=== PATIENT | male | born 1955 | race Caucasian/White ===

== ENCOUNTER 2023-01-23 10:15 | Outpatient (AMB) | payer OTHER, SELFPAY ==
--- NOTE | 2023-01-23 10:34 | A.OFFVIS_ITS ---
Intake Vital Signs 01/23/23 10:37 Height 6 ft 3 in Weight 200 lb BMI 25.0 BP 139/61 Blood Pressure Location Lt brachial Position Sitting Pulse 65 Intake Visit Reasons: Colonoscopy Screening Intake Note: Patient new consult for 6th pre colonoscopy screening. Patient denies any GI issues. Child Protective Services Specialist Required: No Accompanied by: Self / Same As Patient Allergies No Known Allergies [No Known Allergies*] Allergy (Verified 01/23/23 10:32) Medication List - Last Reconciled 01/23/23 by Gabby Garza PA-C atorvastatin (Lipitor) 20 mg PO DAILY cetirizine (Zyrtec) 10 mg PO DAILY PRN ramipril 10 mg PO DAILY tamsulosin (Flomax) 0.4 mg PO DAILY HPI HPI Comments History of Present Illness Details A 67 y/o male hx sessile serrated/ adenoma polyps Hemorrhoids- bleed - rarely- last only couple days- He is very active, goes to the gym for 5 days a week- he has good appetite normal bowel pattern No cardiac or respiratory No nausea, vomiting, hematemesis, hematochezia fever chills PFSH Surgical History Hx of hernia repair Hx of tonsillectomy Hx of eye surgery Hx of knee surgery Social History (Updated 01/23/23 @ 11:00 by Gabby Garza PA-C) Household Members: Family Alcohol intake: current Alcohol intake frequency: holidays/special occasions only Patient Tobacco Use Status: Never used Tobacco Use of substances other than those prescribed or required for medical reasons: No Current occupational status: retired Current occupation: Emergency Medicine Review of Systems Const Details: All systems reviewed and are negative All systems reviewed & are unremarkable except as noted in HPI and below Card Denies chest pain and Denies dyspnea Resp Denies dyspnea GI Denies abdominal pain, Denies heartburn, Denies diarrhea and Denies nausea Physical Exam Vital Signs: Last Vital Signs Pulse 65 01/23/23 10:37 BP 139/61 01/23/23 10:37 BMI result Body Mass Index 25.0 Const General: cooperative, healthy appearing, comfortable and no acute distress Orientation/consciousness: patient oriented x3 Limitations: no limitations Eyes Sclerae: sclerae normal Resp Effort & Inspection: normal respiratory effort and able to speak in complete sentences Auscultation: clear to auscultation bilaterally, no rales, no rhonchi and no wheezes Cardio Rate: regular rate Rhythm: regular rhythm Heart sounds: S1 normal heart sound present and S2 normal heart sound present Skin General skin exam: no rashes or lesions noted Neuro General: patient oriented x3 Extrem General: Yes full ROM Psych Appearance: grossly normal and well kempt Mental Status: mental status grossly normal Speech and movement: Normal speech and movement present and Clear speech present Affect: normal affect Attitude: cooperative Thought process: Normal thought process present Thought content: Normal thought content present Insight: Good insight present (Psych) Judgement: Good judgement present (Psych) Results Reviewed Results Reviewed: mpression and Post Procedure Diagnosis: Colonoscopy Findings: 3 Polyps removed x 1 Diverticulum in ascending colon Internal Hemorrhoids on retroflexed exam. Plan: Await pathology results epsom salts/sitz bath and high fiber diet, avoid straining at stool, squatty potty-if sx persist then colo rectal referral Repeat Colonoscopy interval 3 yrs Adenoma Sessile serratated Assessment & Plan Assessment & Plan (1) Sessile serrated polyp of colon: Code(s): D12.6 - Benign neoplasm of colon, unspecified Plan: Polyp surveillance colonoscopy (2) Tubular adenoma: Code(s): D36.9 - Benign neoplasm, unspecified site (3) Hemorrhoids: Code(s): K64.9 - Unspecified hemorrhoids Plan: Maintain high-fiber diet Avoid straining Plan Polyp surveillance colonoscopy with Dr. Davey Orders: Orders Colonoscopy - GI Use Only Today D12.6 - Benign neoplasm of colon, unspecified, D36.9 - Benign neoplasm, unspecified site Medications: New bisacodyl (Dulcolax (bisacodyl)) Day before procedure, prep day Take 4 tablets by mouth upon awakening followed by large glass of water 20 mg (4 x 5 mg) PO ONCE 4 tabs 0RF colonoscopy prep 1 day Z12.11 - Encounter for screening for malignant neoplasm of colon polyethylene glycol 3350 (Miralax) Take as directed by mouth the day before your procedure. 238 grams PO ONCE PRN 238 grams 0RF laxative effect 1 day Patient Instructions: Very pleasant 67-year-old Gent personal history of colon polyps Polyp surveillance colonoscopy-Dr. Davey MiraLaregina Gatorade split prep High-fiber diet Avoid straining with Encouraged to call questions or concerns Coding Level of Care Code New Pt Level 3 (17018) Diagnoses Sessile serrated polyp of colon D12.6 Tubular adenoma D36.9 Hemorrhoids K64.9 Time Spent (min) 30
[2023-01-23 10:37] VITALS: BP 139/61; PULSE 65; BMI 25.0
== END 2023-01-23 11:44 | disposition home or self-care (01) ==
PROVIDERS: PCP Nurse Practitioner Family; Visit Provider Physician Assistant
DX: D12.6 Benign neoplasm of colon, unspecified (principal); D36.9 Benign neoplasm, unspecified site; K64.9 Unspecified hemorrhoids
CPT/HCPCS: 99203

== ENCOUNTER → 2023-01-23 10:15 | Outpatient (BNVA) | payer OTHER, SELFPAY | PROVIDERS: PCP Nurse Practitioner Family; Visit Provider Physician Assistant ==

== ENCOUNTER 2023-05-30 10:45 | Day surgery (SDC) | payer OTHER, SELFPAY ==
[2023-05-28 14:18] VITALS: BMI 25.0
--- NOTE | 2023-05-29 10:54 | P.CONAN_ITS ---
Documented by User: Dora Yoder NP 05/29/23 10:54 HPI - Anesthesia Eval Consult details Narrative: 67yo M for Colonoscopy PMFSH Active Problems Active Problems: All Active Problems (Updated 05/28/23 @ 14:16 by Cathleen Villa RN) Hemorrhoids (Acute) Tubular adenoma (Acute) Sessile serrated polyp of colon (Acute) Past Medical History Medical History (Updated 05/30/23 @ 11:41 by Cassie Rodas, MYRA) Arthritis Elevated cholesterol HTN (hypertension) Surgical History Surgical History H/O colonoscopy Hx of hernia repair Hx of tonsillectomy Hx of eye surgery Hx of knee surgery Social History Social History (Updated 01/23/23 @ 11:00 by Gabby Garza PA-C) Household Members: Family Alcohol intake: current Alcohol intake frequency: holidays/special occasions only Patient Tobacco Use Status: Never used Tobacco Use of substances other than those prescribed or required for medical reasons: No Are you DNR?: No Advance Directives: No Advance Directives Information Provided: Yes Current occupational status: retired Current occupation: Emergency Medicine Meds Allergies Allergy/AdvReac Type Severity Reaction Status Date / Time No Known Allergies Allergy Verified 05/30/23 11:41 [No Known Allergies*] Home Medications Medication Instructions Recorded Confirmed Last Taken Type atorvastatin 20 mg tablet (Lipitor) 20 mg PO DAILY 01/23/23 05/28/23 Unknown History cetirizine 10 mg tablet (Zyrtec) 10 mg PO DAILY PRN Allergy Symptoms 01/23/23 05/28/23 Unknown History ramipril 10 mg capsule 10 mg PO DAILY 01/23/23 05/28/23 Unknown History tamsulosin 0.4 mg capsule (Flomax) 0.4 mg PO DAILY 01/23/23 05/28/23 Unknown History tgjeofoz-[id number] 300 mcg-K 60 1 tab PO DAILY 05/30/23 05/30/23 Unknown History mcg-lycop 600 mcg-lutein 300 mcg tablet (Centrum Silver Men) Exam Height,Weight and Vital Signs: Height 6 ft 3 in Weight 90.718 kg Assessment and Plan Assessment Anesthesia Assessment: Chart Reviewed Documented by User: John Haywood MD 05/30/23 12:06 [facility] Past Medical History Medical History (Updated 05/30/23 @ 11:41 by Cassie Rodas, MYRA) Arthritis Elevated cholesterol HTN (hypertension) Functional capacity: independent ambulation Family History Family history of problems with anesthesia: No Surgical History Surgical History H/O colonoscopy Hx of hernia repair Hx of tonsillectomy Hx of eye surgery Hx of knee surgery History of Problems with Anesthesia: No Social History Social History (Updated 01/23/23 @ 11:00 by Gabby Garza PA-C) Household Members: Family Alcohol intake: current Alcohol intake frequency: holidays/special occasions only Patient Tobacco Use Status: Never used Tobacco Use of substances other than those prescribed or required for medical reasons: No Are you DNR?: No Advance Directives: No Advance Directives Information Provided: Yes Current occupational status: retired Current occupation: Emergency Medicine Meds Allergies Allergy/AdvReac Type Severity Reaction Status Date / Time No Known Allergies Allergy Verified 05/30/23 11:41 [No Known Allergies*] Home Medications Medication Instructions Recorded Confirmed Last Taken Type atorvastatin 20 mg tablet (Lipitor) 20 mg PO DAILY 01/23/23 05/28/23 Unknown History cetirizine 10 mg tablet (Zyrtec) 10 mg PO DAILY PRN Allergy Symptoms 01/23/23 05/28/23 Unknown History ramipril 10 mg capsule 10 mg PO DAILY 01/23/23 05/28/23 Unknown History tamsulosin 0.4 mg capsule (Flomax) 0.4 mg PO DAILY 01/23/23 05/28/23 Unknown History twzsvppo-kh-[id number] 300 mcg-K 60 1 tab PO DAILY 05/30/23 05/30/23 Unknown History mcg-lycop 600 mcg-lutein 300 mcg tablet (Centrum Silver Men) Exam Airway Mallampati Class: I TM Dist: >3cm Neck ROM: Full Loose/Missing/Broken Teeth: No Heart: rrr Lungs: cta b/l Assessment and Plan Assessment Anesthesia Assessment: Anesthesia Plan Discussed Final Anesthetic Review Family History of Problems with Anesthesia: No History of Problems with Anesthesia: No NPO: Yes ASA Class: II Final Preanesthetic Review: Meds/Allgs Chart Reviewed, Consent Obtained/Reviewed and Anes Risks/Benef Reviewed Patient Risk: Intermediate Procedure Risk: Intermediate Anesthetic Plan Anesthetic Plan: MAC: Disposition: Standard PACU
[2023-05-30 11:43] VITALS: BMI 25.9
[2023-05-30 11:49] VITALS: BP 154/58; PULSE 59; RESP 15; TEMP 36.2; O2SAT 99
[2023-05-30] MEDS: Lactated Ringers 1,000 ML 100 ML IVCONT (12:04)
--- NOTE | 2023-05-30 12:06 | MHC.SHP ---
Pre-Procedural Eval Section A - 24 Hr Update-Section A only Date of Service: 05/30/23 Section B - Complete if H&P > 30 days Chief Complaint: Benign neoplasm of colon, unspecified Relevant Family History (Specify if Yes): No Relevant Social History: None Present Medications: see Short Stay Collaborative assessment Medical History: Significant History ( Arthritis Elevated cholesterol HTN (hypertension)) History of Previous Operations: Relevant previous surgery/procedure and date(s) ( H/O colonoscopy Hx of hernia repair Hx of tonsillectomy Hx of eye surgery Hx of knee surgery) Allergies: Allergies Allergy/AdvReac Type Severity Reaction Status Date / Time No Known Allergies Allergy Verified 05/30/23 11:41 [No Known Allergies*] Review of Systems Sugical H&P ROS: Negative: Constitution, Cardiovascular, Respiratory, Neurological, Psychiatric, Hem-Onc, Allergic/Immunologic, Gastrointestinal, Genitourinary, Musculoskeletal, Integumentary, Endocrine and Eyes/Ears/Nose/Throat Exam Surgical H&P Exam: Normal: HEENT, Normal: Heart, Normal: Lungs, Normal: Extremities, Normal: Abdomen, Normal: Skin and Normal: Neurological Plan Diagnosis/Plan: Unchanged I have reviewed the history and physical and performed a pertinent physical examination on my patient. No changes have occurred unless specified. Time Spent With Patient Time: Total time managing care of this patient today ____ minutes.
--- NOTE | 2023-05-30 12:46 | W.PM.OPN ---
Operative Note Operative Note Date of Service: 05/30/23 Narrative: Operative Information Procedure Description: Colonoscopy Indication: screening, hx of colon polyps Anesthesia: MAC COLONOSCOPY Instrument: Olympus variable stiffness pediatric scope 190L Colonoscopy Monitoring: Vital signs and clinical assessment, continuous EKG monitoring, Pulse oximetry, Carbon Dioxide monitoring and blood pressure monitoring were done throughout the procedure. Colon withdrawal time was 7 minutes. Procedure: The patient was placed in the left lateral decubitis position and pre-procedure medications were administered. After a digital rectal examination of the ano-rectum, the video colonoscope was inserted into the rectum and advanced through the colon to the cecum/TI. The colonoscope was slowly withdrawn in a retrograde panoramic fashion and the colon mucosa was carefully examined including a retroflexed view of the rectum. Findings and interventions are described below. Procedure Difficulty: moderate -pressure applied Findings: Terminal Ileum-normal Cecum:normal Right sided retroflexion- normal Ascending Colon: 2-3 mm sessile polyp removed with cold forceps Transverse Colon -normal Descending Colon:normal Sigmoid Colon: moderate severe diverticulosis Rectum: Retroflexion with medium sized internal hemorrhoids, grade I, 4-6 mm sessile polyp removed with cold snare Anorectum - normal Colon preparation: [place] Bowel Preparation Scale Right colon; 2 Transverse colon: 2 Left colon; 3 (0 = Unprepared colon segment with mucosa not seen due to solid stool that cannot be cleared. 1 = Portion of mucosa of the colon segment seen, but other areas of the colon segment not well seen due to staining, residual stool and/or opaque liquid. 2 = Minor amount of residual staining, small fragments of stool and/or opaque liquid, but mucosa of colon segment seen well. 3 = Entire mucosa of colon segment seen well with no residual staining, small fragments of stool or opaque liquid) Impression and Post Procedure Diagnosis: polyps internal hemorrhoids diverticular disease Plan: High fiber diet leaflet Avoid straining at stool, epsom salts and sitz bath, anusol supps or cream Repeat Colonoscopy in 5 years due to prior hx of polyps or earlier if clinically indicated Above findings were reviewed with the patient and relevant handouts were provided if indicated.
[2023-05-30 13:26] VITALS: BP 122/67; PULSE 62; RESP 16; TEMP 36.1; O2SAT 98
[2023-05-30 13:41] VITALS: BP 125/68; PULSE 58; RESP 16; O2SAT 99
[2023-05-30 13:56] VITALS: BP 142/63; PULSE 56; RESP 16; TEMP 36.1; O2SAT 99
== END 2023-05-30 15:00 | disposition home or self-care (01) ==
PROVIDERS: PCP Nurse Practitioner Family; Visit Provider Internal Medicine Gastroenterology
PROC: 0DJD8ZZ Inspection of Lower Intestinal Tract, Via Natural or Artificial Opening Endoscopic (ICD-10-PCS; CPT 45378; principal; 2023-05-30 13:10)
DX: Z12.11 Encounter for screening for malignant neoplasm of colon (principal); Z86.010 Personal history of colon polyps; K63.5 Polyp of colon; K62.1 Rectal polyp; K57.30 Diverticulosis of large intestine without perforation or abscess without bleeding; K64.0 First degree hemorrhoids; I10 Essential (primary) hypertension; E78.00 Pure hypercholesterolemia, unspecified; Z79.899 Other long term (current) drug therapy
CPT/HCPCS: 45385; 45380; 88305

== ENCOUNTER → 2023-05-30 10:45 | Outpatient (BNV) | payer OTHER, SELFPAY | PROVIDERS: PCP Nurse Practitioner Family; Visit Provider Internal Medicine Gastroenterology | DX: Z12.11 Encounter for screening for malignant neoplasm of colon (principal); K63.5 Polyp of colon; K57.90 Diverticulosis of intestine, part unspecified, without perforation or abscess without bleeding; K64.8 Other hemorrhoids | CPT/HCPCS: 45380; 45385 ==